=== PATIENT | female | born 1955 | race Caucasian/White ===

== ENCOUNTER 2017-04-09 17:52 | Emergency (ER) | payer BC ==
[2017-04-09 18:01] VITALS: BP 161/105
[2017-04-09] MEDS ORDERED: predniSONE 20 MG Tab PO ONE (18:33)
[2017-04-09] MEDS ORDERED: Albuterol 0.083% 2.5 MG/3 ML Neb Soln NEB ONE ×2 (18:33→20:09)
[2017-04-09] MEDS ORDERED: Levalbuterol HCl 1.25 MG/0.5 ML Neb NEB ONE (18:34)
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
[2017-04-09] MEDS ORDERED: Azithromycin 250 MG Tab PO ONE (19:44)
[2017-04-09] MEDS ORDERED: Azithromycin 250 MG Tab PO SCH (19:45)
[2017-04-09] MEDS ORDERED: Azithromycin 250 MG Tab ONE (19:53)
[2017-04-09] MEDS ORDERED: guaiFENesin 600 MG Tab.ER PO ONE (20:09)
[2017-04-09] MEDS ORDERED: Albuterol/Ipratropium 3.0-0.5 MG/3 ML Neb Soln NEB ONE (20:33)
[2017-04-09] MEDS ORDERED: Albuterol 6.7 GM Inhaler INH ONE ×2 (20:33→21:13)
[2017-04-09] MEDS ORDERED: Sodium Chloride 0.9% 10 ML Syringe FLUSH PRN (20:34)
[2017-04-09] MEDS ORDERED: Magnesium Sulfate/Water 2 GM in Premix Bag 1 BAG IV ONE (20:34)
[2017-04-10] MEDS ORDERED: Azithromycin 250 MG Tab PO ONE (19:34)
--- NOTE | 2017-04-12 10:04 | CR ---
Chest: Two views of the chest were obtained. Comparison: No prior study. Thick density is seen within the right lung base. This is noted on the PA view and not identified with certainty on the lateral view. This could represent an area of scarring, atelectasis as well as small area of pneumonia. Perihilar markings are also increased most likely representing bronchitis. Heart does not appear enlarged. Upper mediastinum is normal. Lungs are hyperinflated which is compatible with emphysematous change. Degenerative spurring is identified throughout the thoracic spine. Impression: 1. Increased perihilar markings which most likely represent bronchitis. 2. Thick density within the right lung base with differential as described above. 3. Emphysematous changes and other incidental findings. Diagnostic code #3
== END 2017-04-09 21:35 | disposition home or self-care (01) ==
LOC: JD.ED 17:52
DX: J18.9 Pneumonia, unspecified organism (principal); J45.909 Unspecified asthma, uncomplicated; F17.210 Nicotine dependence, cigarettes, uncomplicated; Z79.899 Other long term (current) drug therapy
CPT/HCPCS: 71020; 94640; 96365; 99285; A9270; J7050; 99284; J3475

== ENCOUNTER 2017-12-10 00:22 | Emergency (ER) | payer BC ==
[2017-12-10] MEDS ORDERED: methylPREDNISolone Sodium Succinate 125 MG/2 ML SDV IVPUSH ONE (00:24)
[2017-12-10] MEDS ORDERED: Albuterol/Ipratropium 3.0-0.5 MG/3 ML Neb Soln NEB ONE ×2 (00:24→05:54)
[2017-12-10] MEDS ORDERED: Albuterol 0.083% 2.5 MG/3 ML Neb Soln NEB ONE (00:25)
[2017-12-10] MEDS ORDERED: Magnesium Sulfate/Water 2 GM in Premix Bag 1 BAG IV ONE (00:26)
[2017-12-10] MEDS ORDERED: Sodium Chloride 0.9% 1,000 ML IV SCH (00:30)
--- NOTE | 2017-12-10 00:30 | EDM.PDOC ---
ED HPI GENERAL MEDICAL PROBLEM - General Chief Complaint: Respiratory Problem Stated Complaint: [facility] Time Seen by Provider: 12/10/17 00:24 Source of Information: Reports: Patient, EMS Notes Reviewed History Limitations: Reports: No Limitations - History of Present Illness INITIAL COMMENTS - FREE TEXT/NARRATIVE: 62-year-old female presents to the ED with severe asthma attack. She has underlying COPD with a reversible component. She states she has a nebulizer machine at home but rarely needs unless she gets sick with an upper respiratory tract infection. She believes that the carranza given to her for Mother's Day are the cause of her acute asthma attack. These are lilies which she is known to be allergic to. Apparently they blossomed opened up quite a bit today and therefore dispersed pollen in her living quarters. About 9:30 she started to develop increased dyspnea and became severely short of breath by midnight. When paramedics arrived her O2 sats were 82% on room air. She was bey in color. She was in severe respiratory distress. She had used her nebulizer machine with albuterol neb treatments 3 with little improvement. She also used her Advair discus inhaler with no improvement. Medics simply placed her on oxygen at 12 L/ m by nonrebreather mask and brought her to the ED. They did not attempt an IV stick. She did vomit en route to the hospital bilious material and parts of her spaghetti supper. She no longer feels nauseated. Blood pressure when the paramedics picked her up was 202/128 indicating severe distress. Blood pressure here is 159/107. Sats are 95% on 2 L/m by nasal cannula. He should states she still smokes about 10 cigarettes per day. Chronic smoker's cough usually brownish phlegm. No recent upper respiratory tract infections. No fever or chills. Onset: Sudden Onset Date: 12/09/17 Onset Time: 21:00 Duration: Hour(s): (Started to note increased trouble breathing about 9:00 last evening and it progressively worsened over the next 2-3 hours.) Location: Reports: Chest (Difficulty breathing.) Quality: Reports: Other (Severe dyspnea with wheeze.) Severity: Severe Improves with: Reports: None Worsens with: Reports: None Context: Reports: Other (Exposure to flower pollen. Apparently flower's that were given to her for Mother's Day have blossomed and released pollen into the home. She no she's allergic to certain types of lilies apparently which are present inthis boquet. ). Denies: Activity, Exercise, Lifting, Sick Contact, Trauma Associated Symptoms: Reports: Chest Pain, Cough (Central chest pain), cough w sputum, Nausea/Vomiting, Shortness of Breath, Weakness (Vomited once bilious material and her supper.). 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 paramedics did not administer any medication as the patient already used albuterol nebulizer treatment at home 3 and her Advair Diskus inhaler. 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 Denies: Fever, Chills HEENT: Reports: Glasses Respiratory: Reports: Shortness of Breath, Wheezing, Cough, Sputum. Denies: Pleuritic Chest Pain, Hemoptysis (White sputum) Cardiovascular: Reports: Chest Pain, Blood Pressure Problem (Central chest pain is easing up now.), Dyspnea on Exertion (Chronically). Denies: Claudication, Edema, Lightheadedness, Orthopnea Endocrine: Reports: Fatigue GI/Abdominal: Reports: No Symptoms : Reports: No Symptoms Musculoskeletal: Reports: Joint Pain Skin: Reports: No Symptoms (Osteoarthritic changes knees hips low back at times. ) Neurological: Reports: No Symptoms Psychiatric: Reports: No Symptoms Hematologic/Lymphatic: Reports: No Symptoms Immunologic: Reports: No Symptoms ED EXAM, GENERAL - Physical Exam Exam: See Below Exam Limited By: Respiratory Distress (Centered in severe respiratory distress able to speak in one or 2 word sentences only. Currently wearing a nonrebreather mask at 12 L/m to achieve sats of 97%.) General Appearance: Alert, Severe Distress (Severe respiratory distress as mentioned above.) Eye Exam: Bilateral Eye: Normal Inspection, PERRL Throat/Mouth: Normal Lips, Other Head: Atraumatic, Normocephalic Neck: Normal Inspection, Supple, Non-Tender, Full Range of Motion. No: Carotid Bruit, Lymphadenopathy (L), Lymphadenopathy (R) Respiratory/Chest: Respiratory Distress, Decreased Breath Sounds (Wheezing throughout all lung sims. These breath sounds the lower 40% of lung sims posteriorly.), Wheezing, Other (Marked respiratory distress with tracheal tug. Respiratory rate 36/m.) Cardiovascular: Normal Peripheral Pulses, No Edema, No Gallop, No Murmur, No Rub , Tachycardia (Resting tachycardia 1 48/m) Peripheral Pulses: 2+: Posterior Tibial (L), Posterior Tibial (R), Dorsalis Pedis (L), Dorsalis Pedis (R) GI/Abdominal: Soft (Mildly hyperactive bowel sounds.), Non-Tender, Abnormal Bowel Sounds, Other (Well-healed midline scar.) Back Exam: Normal Inspection, Full Range of Motion. No: CVA Tenderness (L) Extremities: Normal Inspection, Normal Range of Motion, Non-Tender, No Pedal Edema Neurological: Alert, Oriented, CN II-XII Intact, Normal Cognition Psychiatric: Anxious Skin Exam: Warm, Dry, Intact, Other (Slightly grayish in color.) EKG INTERPRETATION EKG Date: 12/10/17 Time: 00:40 Rhythm: NSR Rate (Beats/Min): 84 [place]: Normal P-Wave: Enlarged (Consider left atrial enlargement.) QRS: Normal ST-T: Other (Diffuse early repolarization pattern.) QT: Normal EKG Interpretation Comments: Borderline ECG. Course - Vital Signs Last Recorded V/S: Last Vital Signs Temp 35.7 C 12/10/17 00:25 Pulse 83 12/10/17 05:26 Resp 16 12/10/17 05:26 BP 141/73 H 12/10/17 05:26 Pulse Ox 96 12/10/17 06:01 - Orders/Labs/Meds Orders: Active Orders 24 hr Category Date Time Status EKG Documentation Completion [RC] STAT Care 12/10/17 00:29 Active Oxygen Therapy [RC] ASDIRECTED Care 12/10/17 00:33 Active RT Aerosol Therapy [RC] ASDIRECTED Care 12/10/17 00:24 Active RT Aerosol Therapy [RC] ASDIRECTED Care 12/10/17 05:54 Active Chest 1V Frontal [CR] Stat Exams 12/10/17 00:26 Taken Sodium Chloride 0.9% [Normal Saline] 1,000 ml Med 12/10/17 00:30 Active IV ASDIRECTED Medication Orders Sodium Chloride (Normal Saline) 1,000 mls @ 150 mls/hr IV ASDIRECTED LUIS Last Admin: 12/10/17 00:37 Dose: 150 mls/hr Labs: Laboratory Tests 12/10/17 12/10/17 12/10/17 Range/Units 00:29 00:31 00:31 WBC 11.91 H (3.98-10.04) K/mm3 RBC 5.22 (3.98-5.22) M/mm3 Hgb 15.1 (11.2-15.7) gm/L Hct 43.7 (34.1-44.9) % MCV 83.7 (79.4-94.8) fl MCH 28.9 (25.6-32.2) pg MCHC 34.6 (32.2-35.5) g/dl RDW Std Deviation 38.5 (36.4-46.3) fL Plt Count 329 (182-369) K/mm3 MPV 9.6 (9.4-12.3) fl Neutrophils % (Manual) 64 H (40-60) % Band Neutrophils % 0 (0-10) % Lymphocytes % (Manual) 19 L (20-40) % Atypical Lymphs % 0 % Monocytes % (Manual) 7 (2-10) % Eosinophils % (Manual) 10 H (0.7-5.8) % Basophils % (Manual) 0 L (0.1-1.2) Platelet Estimate Adequate RBC Morph Comment Normal Puncture Site Rt radial ABG pH 7.32 L (7.35-7.45) ABG pCO2 48.1 H (35.0-45.0) mmHg ABG pO2 72.0 L (80.0-100.0) mmHg ABG HCO3 23.9 (22.0-26.0) meq/L ABG O2 Saturation 93.9 L (96.0-97.0) % ABG Base Excess -2.2 L (-2-2.0) A-a Gradient 2 mmHg FiO2 21.00 (21.00-100.00) % Sodium 142 (136-145) mEq/L Potassium 3.5 (3.5-5.1) mEq/L Chloride 104 (98-107) mEq/L Carbon Dioxide 26 (21-32) mEq/L Anion Gap 15.5 H (5-15) BUN 18 (7-18) mg/dL Creatinine 1.1 H (0.55-1.02) mg/dL Est Cr Clr Drug Dosing 50.28 mL/min Estimated GFR (MDRD) 50 (>60) mL/min BUN/Creatinine Ratio 16.4 (14-18) Glucose 149 H (80-115) mg/dL Calcium 9.3 (8.5-10.1) mg/dL Magnesium 2.0 (1.8-2.4) mg/dl Total Bilirubin 0.3 (0.2-1.0) mg/dL AST 18 (15-37) U/L ALT 37 (14-59) U/L Alkaline Phosphatase 107 (46-116) U/L CK-MB (CK-2) 2.6 (0-3.6) ng/ml Troponin I < 0.017 (0.00-0.056) ng/mL C-Reactive Protein < 0.2 (<1.0) mg/dL NT-Pro-B Natriuret Pep (0-125) pg/mL Total Protein 7.8 (6.4-8.2) g/dl Albumin 4.4 (3.4-5.0) g/dl Globulin 3.4 gm/dL Albumin/Globulin Ratio 1.3 (1-2) /18/18 Range/Units 00:31 WBC (3.98-10.04) K/mm3 RBC (3.98-5.22) M/mm3 Hgb (11.2-15.7) gm/L Hct (34.1-44.9) % MCV (79.4-94.8) fl MCH (25.6-32.2) pg MCHC (32.2-35.5) g/dl RDW Std Deviation (36.4-46.3) fL Plt Count (182-369) K/mm3 MPV (9.4-12.3) fl Neutrophils % (Manual) (40-60) % Band Neutrophils % (0-10) % Lymphocytes % (Manual) (20-40) % Atypical Lymphs % % Monocytes % (Manual) (2-10) % Eosinophils % (Manual) (0.7-5.8) % Basophils % (Manual) (0.1-1.2) Platelet Estimate RBC Morph Comment Puncture Site ABG pH (7.35-7.45) ABG pCO2 (35.0-45.0) mmHg ABG pO2 (80.0-100.0) mmHg ABG HCO3 (22.0-26.0) meq/L ABG O2 Saturation (96.0-97.0) % ABG Base Excess (-2-2.0) A-a Gradient mmHg FiO2 (21.00-100.00) % Sodium (136-145) mEq/L Potassium (3.5-5.1) mEq/L Chloride (98-107) mEq/L Carbon Dioxide (21-32) mEq/L Anion Gap (5-15) BUN (7-18) mg/dL Creatinine (0.55-1.02) mg/dL Est Cr Clr Drug Dosing mL/min Estimated GFR (MDRD) (>60) mL/min BUN/Creatinine Ratio (14-18) Glucose (80-115) mg/dL Calcium (8.5-10.1) mg/dL Magnesium (1.8-2.4) mg/dl Total Bilirubin (0.2-1.0) mg/dL AST (15-37) U/L ALT (14-59) U/L Alkaline Phosphatase (46-116) U/L CK-MB (CK-2) (0-3.6) ng/ml Troponin I (0.00-0.056) ng/mL C-Reactive Protein (<1.0) mg/dL NT-Pro-B Natriuret Pep 48 (0-125) pg/mL Total Protein (6.4-8.2) g/dl Albumin (3.4-5.0) g/dl Globulin gm/dL Albumin/Globulin Ratio (1-2) Meds: Medications Generic Name Dose Route Start Last Admin Trade Name Freq PRN Reason Stop Dose Admin Sodium Chloride 1,000 mls @ 150 mls/hr 12/10/17 00:30 12/10/17 00:37 Normal Saline IV 150 mls/hr ASDIRECTED LUIS Administration Discontinued Medications Generic Name Dose Route Start Last Admin Trade Name Freq PRN Reason Stop Dose Admin Albuterol 7.5 mg 12/10/17 00:25 12/10/17 00:36 Proventil Neb Soln NEB 12/10/17 00:26 7.5 mg ONETIME ONE Administration Albuterol/Ipratropium 3 ml 12/10/17 00:24 12/10/17 00:36 Duoneb 3.0-0.5 Mg/3 Ml NEB 12/10/17 00:25 3 ml ONETIME ONE Administration Albuterol/Ipratropium 3 ml 12/10/17 05:54 12/10/17 06:01 Duoneb 3.0-0.5 Mg/3 Ml [facility] 12/10/17 05:55 3 ml ONETIME ONE Administration Magnesium Sulfate 2 gm/ Premix 50 mls @ 25 mls/hr 12/10/17 00:26 12/10/17 00: 38 IV 12/10/17 02:25 25 mls/hr ONETIME ONE Administration Methylprednisolone Sodium Succinate 125 mg 12/10/17 00:24 12/10/17 00:37 Solu-Medrol IVPUSH 12/10/17 00:25 125 mg ONETIME ONE Administration Ondansetron HCl 4 mg 12/10/17 00:33 12/10/17 00:40 Zofran IVPUSH 12/10/17 00:34 4 mg ONETIME ONE Administration Prednisone 20 mg 12/10/17 06:25 Prednisone PO 12/10/17 06:26 ONETIME ONE - Radiology Interpretation Free Text/Narrative:: 62-year-old female presents to the ED per ambulance with an acute exacerbation of her asthma. Patient has known COPD and still smokes 10 cigarettes per day. She needs nebulizer treatment on a when necessary basis usually only when she gets upper respiratory tract infection. She appreciated that she got carranza for Mother's Day and these contain lilies. She believes they opened up today and released pollen into the home. She is known to be very allergic to lilies. Started to develop severe dyspnea and wheezing about 2100 hrs. which progressed over the next 3 hours. She has used her home nebulizer treatment with albuterol 3 with minimal improvement also used Advair discus with minimal improvement. Paramedics were summoned. O2 sats initially were 82% and she was bey in color. She was given oxygen at 12 L/m by nonrebreather mask which achieved O2 sats 97% . Patient did have emesis en route to the hospital of bile and her supper. She does not feel nauseated at this time. Initial BP was 202/146. Patient presented only able to speak in one or 2 word sentences. Patient will be given DuoNeb treatment immediately and then albuterol continuous neb treatment 7.5 mg over the next 45 minutes to an hour. ABGs ECG chest x-ray and routine labs to be done. She will also be given magnesium 2 g IV. She will also be given Solu- Medrol 125 mg IV. - Re-Assessments/Exams Free Text/Narrative Re-Assessment/Exam: 12/10/17 00:56 ECG shows sinus rhythm at 84/m now. There is a diffuse early repolarization pattern intermittent leads make it look like she has ST segment depression but this is due to wandering baseline. Consider left atrial hypertrophy pattern. ABGs reveal a pH of 7.32. PCO2 is 48.1. PO2 was 7202 saturations are 94% this is done on 2 L/m nasal cannula. Monitor reveals sats continued to improve her now 96%. She is just starting her continuous albuterol neb treatment now. 12/10/17 00:59 One view chest x-ray reveals hyperinflated lung sims. Thorax present. There is a thickened density in the right lower lobe of the lung which appears to be scar tissue. It was present on last chest x-ray done in March 2017. No acute infective process is evident. Cardiac silhouette is upper limits of normal by portable technique. 12/10/17 01:14 able to talk in full sentences now. O2 sats are 97-100% on continuous albuterol neb treatment. 12/10/17 01:41 Labs reveal a mildly elevated white count at 11.91 with 64% neutrophils and no bands. Hemoglobin is 15.1 with hematocrit of 43.7. Platelet count is normal at 329,000. ABGs revealed pH of 7.32 with PCO2 of 48.1 and a PaO2 of 72 with O2 sats of 94% this was done off of oxygen. Sodium was 142 with potassium of 3.5. Chloride 104 bicarbonate 26. And a gap is 15.5. BUNs 18. Creatinine is 1.1. Glucose is 149 with a calcium of 9.3. Magnesium was 2.0. Bilirubin 0.3. Liver function normal .CK-MB fraction 2.6 . Troponin I is less than 0.017. BNP was 48. 12/10/17 02:03 Vital signs remained stable. O2 sats are 92-93%. BP is down to 150/75 heart rates 86. Spiked rate is now 19/m. On auscultation she remains diffusely wheezy in all lung sims. Plan will be to keep her in the ED to see if we can break the acute asthma cycle since the precipitant appears to be flower pollen. Also there is only one nurse working in the intensive care unit tonight and to patient's already in the unit. 12/10/17 02:40 vital signs remained stable. BP is 151/82. Heart rate is 83 and sinus. O2 sats are 94% on 2 L. Respiratory rate is 18/m. Patient has managed to fall asleep. 12/10/17 03:51 blood pressure is now 138/73. O2 sats are 95% on 2 L respiratory distended 17/m heart rate is 79 and sinus. Patient has been able to sleep 12/10/17 05:23 blood pressure is currently 141/73. Heart rate is 82 and sinus. Respiratory rate is now down to 16/m pulse ox 96% on 2 L. Will consider starting to wean her from oxygen. 12/10/17 05:55 patient desaturated down to 89% off of oxygen while asleep. He remained between 89 and 90% on room air and after 10 minutes was increased back to 2 L/m. She will have repeat DuoNeb at 0600 hrs. 12/10/17 06:26 patient was reexamined and she has no wheezing at all. She feels good in terms of able to take a full deep breath without any restrictions. She does report that she was outside planting carranza all day yesterday. The fact that she responded so aggressively to pollen exposure suggest that there is chronic underlying inflammation of her bronchial tubes. I'm going to place her in a short course of prednisone 20 mg twice a day for the next 4 days. First I will be provided in the ED now next toe would be due its suppertime tonight. I told will wean her off her oxygen. When she takes a few deep breaths she pops up to 97--98%. Tentatively she'll be discharged to home I believe her will be coming back to check on her at 0700 hrs. Departure - Departure Time of Disposition: 07:00 Disposition: Home, Self-Care 01 Condition: Fair Clinical Impression: Exacerbation of asthma Qualifiers: Asthma severity: severe Asthma persistence: unspecified Qualified Code(s): J45.901 - Unspecified asthma with (acute) exacerbation - Discharge Information Prescriptions: predniSONE [Deltasone] 20 mg PO BID #7 tablet Referrals: PCP,None [Primary Care Provider] - Forms: ED Department Discharge Additional Instructions: Evaluation in the emergency room today in regards to acute exacerbation of asthma felt to be precipitated by exposure to pollen from lilies given to you on Mother's Day. By history it appears that the lilies opened up and released great detail pollen into her home tonight which precipitated a severe asthma attack. You're treated aggressively in the emergency department with initial DuoNeb treatment and then continuous albuterol for 45 minutes which improved her breathing dramatically. You're also given steroid Solu-Medrol 125 mg IV and magnesium 2gms over 2 hours intravenously. He remained on oxygen until about 0615 hrs. this morning when it was determined that your lungs sounds were markedly improved with no further wheezing evident. Oxygen saturations remained around mid 94 to 95 percent off over the oxygen while you are awake. Therefore continue your usual asthma treatment with the addition of prednisone 20 mg twice daily for the next 4 days ideally with breakfast and supper to make sure you don't get a recurrence of severe asthma attack. First tablet of prednisone was given in the emergency department this morning next tablet would be due at suppertime tonight. Of course continue to use her albuterol nebulizations as needed as often as every 3-4 hours if you develop shortness of breath and or wheezing over the next few days. If condition worsens in is not improving with treatment at home of course return to the ED. - My Orders Last 24 Hours: My Active Orders 12/10/17 00:24 RT Aerosol Therapy [RC] ASDIRECTED 12/10/17 00:26 Chest 1V Frontal [CR] Stat 12/10/17 00:29 EKG Documentation Completion [RC] STAT 12/10/17 00:30 Sodium Chloride 0.9% [Normal Saline] 1,000 ml IV ASDIRECTED 12/10/17 00:33 Oxygen Therapy [RC] ASDIRECTED 12/10/17 05:54 RT Aerosol Therapy [RC] ASDIRECTED - Assessment/Plan Last 24 Hours: My Active Orders 12/10/17 00:24 RT Aerosol Therapy [RC] ASDIRECTED 12/10/17 00:26 Chest 1V Frontal [CR] Stat 12/10/17 00:29 EKG Documentation Completion [RC] STAT 12/10/17 00:30 Sodium Chloride 0.9% [Normal Saline] 1,000 ml IV ASDIRECTED 12/10/17 00:33 Oxygen Therapy [RC] ASDIRECTED 12/10/17 05:54 RT Aerosol Therapy [RC] ASDIRECTED
[2017-12-10] MEDS ORDERED: Ondansetron 4 MG/2 ML SDV IVPUSH ONE (00:33)
[2017-12-10 05:27] VITALS: BP 141/73
[2017-12-10] MEDS ORDERED: predniSONE 20 MG Tab PO ONE (06:25)
--- NOTE | 2017-12-10 08:00 | CR ---
Chest: Portable view of the chest is obtained. Comparison: Prior chest x-ray of 04/09's of 17. Parenchymal density is noted within the right lung base. This appears similar to prior study having a thick curvilinear appearance. Since this appears persistent recommend a noncontrast chest CT to make sure this does not appear to be masslike. Lungs otherwise are clear but hyperinflated (consistent with emphysematous change). Heart size is normal. Scoliosis and degenerative change is noted within the spine. Impression: 1. Parenchymal density within the right base. Noncontrast chest CT recommended to further evaluate. 2. Other incidental findings. Nothing acute is otherwise seen. Diagnostic code #9
== END 2017-12-10 06:55 | disposition home or self-care (01) ==
LOC: JD.ED 00:22
DX: J45.901 Unspecified asthma with (acute) exacerbation (principal); F17.210 Nicotine dependence, cigarettes, uncomplicated
CPT/HCPCS: 36415; 36600; 71045; 80053; 82553; 82803; 83735; 83880; 84484; 85007; 85027; 86140; 93005; 94640; 96361; 96365; 96366; 96375; 99285; A9270; J2405; J2930; J7040; J3475

== ENCOUNTER 2019-06-04 15:13 | Emergency (ER) | payer BC ==
[2019-06-04 15:26] VITALS: BP 161/99; PULSE 92
--- NOTE | 2019-06-04 15:30 | EDM.PDOC ---
ED HPI GENERAL MEDICAL PROBLEM - General Chief Complaint: Upper Extremity Injury/Pain Stated Complaint: SLIPPED ON ICE,RIGHT ARM PAIN Time Seen by Provider: 06/04/19 15:22 Source of Information: Reports: Patient History Limitations: Reports: No Limitations - History of Present Illness INITIAL COMMENTS - FREE TEXT/NARRATIVE: Patient accidentally slipped on the ice landing on her right shoulder. Since that is been able to move her arm however has limited range of motion especially in abduction at the shoulder. Tenderness is noted to the proximal humerus, no elbow pain or wrist pain. Denies any head injury and neck injury, slipped and fell backwards on her shoulder, starting to get some tightness in her low back muscles. No loss of bowel or bladder control. No hip pain or lower extremity injury. Patient is right-handed. No numbness or tingling to the shoulder blade or shoulder/deltoid region Onset: Today, Sudden Onset Date: 06/04/19 Duration: Hour(s):, Constant Location: Reports: Upper Extremity, Right Quality: Reports: Ache, Dull Severity: Moderate Improves with: Reports: None Worsens with: Reports: Movement Context: Reports: Activity Associated Symptoms: Denies: Chest Pain, Cough, Fever/Chills, Headaches, Nausea/ Vomiting Right Shoulder Pain Score (Numeric/FACES): 5 - Related Data Allergies Allergy/AdvReac Type Severity Reaction Status Date / Time No Known Allergies Allergy Verified 06/04/19 15:26 Home Meds: Home Meds Albuterol Sulfate [Albuterol Sulfate HFA] 2 inh INH ASDIRECTED PRN 04/07/14 [ History] Fluticasone/Salmeterol [Advair 250-50] 1 puff PO BID 08/25/15 [History] Famotidine [Pepcid AC] 20 mg PO BID PRN #30 tablet 03/02/18 [Rx] Naproxen Sodium [Aleve] 220 mg PO ASDIRECTED #30 capsule 03/02/18 [Rx] Cyclobenzaprine [Flexeril] 10 mg PO BEDTIME #12 tab 06/04/19 [Rx] Past Medical History - Past Health History Medical/Surgical History: Denies Medical/Surgical History HEENT History: Reports: Impaired Vision Other HEENT History: wears corrective lenses Respiratory History: Reports: Asthma, COPD 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: Reports: 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 Denies: Bruising Neurological: Reports: No Symptoms. Denies: Dizziness, Headache, Numbness, Paresthesia, Tingling Psychiatric: Reports: No Symptoms ED EXAM, GENERAL - Physical Exam Exam: See Below Exam Limited By: No Limitations General Appearance: Alert, WD/WN, No Apparent Distress Neck: Normal Inspection, Supple, Non-Tender, Full Range of Motion Respiratory/Chest: Chest Non-Tender Peripheral Pulses: 2+: Radial (R) Back Exam: Normal Inspection. No: CVA Tenderness (L), Vertebral Tenderness Extremities: Normal Capillary Refill, Arm Pain, Limited Range of Motion, Other ( Tenderness in the right shoulder, proximal humerus area. No gross deformity or step-off, sensation is normal, distal pulses are normal. No clavicular tenderness no before meals joint tenderness no scapular pain. Elbow has good range of motion both supination and pronation flexion and extension wrist exam and without injury or pain. Distal sensation and motor strength normal.) Neurological: Alert, Oriented Psychiatric: Normal Affect Skin Exam: Warm, Dry. No: Ecchymosis Course - Vital Signs Text/Narrative:: Examination, x-rays, rule out fracture dislocation suspect may be a rotator cuff injury Last Recorded V/S: Last Vital Signs Temp 98.5 F 06/04/19 15:21 Pulse 92 06/04/19 15:21 Resp 18 06/04/19 15:21 BP 161/99 H 06/04/19 15:21 Pulse Ox 95 06/04/19 15:21 - Orders/Labs/Meds Orders: Active Orders 24 hr Category Date Time Status Shoulder Comp Rt [CR] Stat Exams 06/04/19 15:30 Taken - Radiology Interpretation Free Text/Narrative:: 3 views of the right shoulder revealed a lot of degenerative changes. There is no obvious fracture dislocation however noted. Upper ribs and upper chest is unremarkable. - Re-Assessments/Exams Free Text/Narrative Re-Assessment/Exam: 06/04/19 16:35 This musculoskeletal strain/rule out rotator cuff injury. Will treat patient with Naprosyn, muscle relaxant, follow-up with primary care and/or orthopedic Return if any increasing pain, numbness or tingling. Departure - Departure Time of Disposition: 16:36 Disposition: Home, Self-Care 01 Clinical Impression: Contusion of shoulder, Fall due to ice or snow - Discharge Information *PRESCRIPTION DRUG MONITORING PROGRAM REVIEWED*: Not Applicable *COPY OF PRESCRIPTION DRUG MONITORING REPORT IN PATIENT SANDRA: Not Applicable Prescriptions: Cyclobenzaprine [Flexeril] 10 mg PO BEDTIME #12 tab Instructions: Cryotherapy, [id number], Contusion, [id number] Referrals: PCP,None [Primary Care Provider] - Forms: ED Department Discharge Additional Instructions: Rest, ice, ibuprofen for pain, Flexeril for muscle relaxant, follow-up with your primary care provider. Return sooner if increasing pain, numbness, tingling, worsening - My Orders Last 24 Hours: My Active Orders 06/04/19 15:30 Shoulder Comp Rt [CR] Stat - Assessment/Plan Last 24 Hours: My Active Orders 06/04/19 15:30 Shoulder Comp Rt [CR] Stat
[2019-06-04] MEDS ORDERED: Cyclobenzaprine 10 MG Tab PO ONE (16:58)
[2019-06-04] MEDS ORDERED: Cyclobenzaprine 10 MG Tab ONE (16:58)
[2019-06-04] MEDS ORDERED: Cyclobenzaprine 10 MG Tab PO SCH (21:00)
--- NOTE | 2019-06-05 07:13 | CR ---
Right shoulder: Three views of the right shoulder obtained. Comparison: No previous right shoulder exam. Inferior spurring is noted within the glenohumeral joint as well as fairly prominence inferior spurring being seen within the acromioclavicular joint. Acromioclavicular spurring is large enough to cause impingement. No acute fracture or dislocation is seen. Slight cystic change is noted within the greater tuberosity which is felt to be incidental. Impression: 1. Degenerative change as noted above. Diagnostic code #2
== END 2019-06-04 17:05 | disposition home or self-care (01) ==
LOC: JD.ED 15:13
DX: S40.011A Contusion of right shoulder, initial encounter (principal); J44.9 Chronic obstructive pulmonary disease, unspecified; Z79.899 Other long term (current) drug therapy; W00.0XXA Fall on same level due to ice and snow, initial encounter
CPT/HCPCS: 73030; 99283; A9270

== ENCOUNTER 2020-02-23 05:39 | Emergency (ER) | payer BC, OTHER ==
[2020-02-23] MEDS ORDERED: Ondansetron 4 MG/2 ML SDV IVPUSH ONE (05:50)
[2020-02-23] MEDS ORDERED: HYDROmorphone 1 MG/ML Syringe IVPUSH ONE (05:50)
--- NOTE | 2020-02-23 05:55 | EDM.PDOC ---
ED HPI GENERAL MEDICAL PROBLEM - General Chief Complaint: Back Pain or Injury Stated Complaint: [facility] Time Seen by Provider: 02/23/20 05:49 Source of Information: Reports: Patient, EMS History Limitations: Reports: No Limitations - History of Present Illness INITIAL COMMENTS - FREE TEXT/NARRATIVE: 64-year-old female presents to the ED with bilateral severe low back pain. Patient has been dealing with chronic low back pain issues. 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 She reports she has been going to physiotherapy 2-3 times weekly and has responded well to treatment. Yesterday she lifted some heavy plant pots containing soil and did feel her low back hurting last night. She also was staining the deck with repetitive twisting movements in the last few days. She took Motrin 600 mg by mouth about 2200 hrs. before going to bed. She states it may have helped for couple of hours but since that time she is been awake. Any movement causes severe spasm, particularly in her right lower back. At present she has pain radiating down her left anterior lateral thigh to her ankle. She states this has happened in the past but was under good control until last evening. She has had no previous lumbar spine surgery. She denies any dysuria urgency or frequency. No fever or chills. Reports that she still passing flatus per rectum. Does not feel distended in the abdomen. Pain is constant and worsened by any movement. Paramedics brought her to the hospital per [facility]. She has received no medications from them. Onset: Gradual Onset Date: 02/22/20 Onset Time: 18:00 Duration: Hour(s):, Getting Worse Location: Reports: Back (His low back pain with radiculopathy left lower extremity down to her ankle. Right low back pain with spastic component if she moves at all.) Quality: Reports: Ache, Stabbing (Spasms lower back worse on the right compared to the left.), Throbbing Severity: Severe (9 out of 10.) Improves with: Reports: Rest Worsens with: Reports: Movement (Or attempt to set up causes exacerbation of the pain.) Context: Reports: Lifting (Is lifting heavy plant pots yesterday.). Denies: Activity, Exercise Associated Symptoms: Reports: Cough, Loss of Appetite. 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 last night.) Lower Back Pain Score (Numeric/FACES): 10 - Related Data Allergies Allergy/AdvReac Type Severity Reaction Status Date / Time No Known Allergies Allergy Verified 02/23/20 05:40 Home Meds: Home Meds Albuterol Sulfate [Albuterol Sulfate HFA] 2 inh INH ASDIRECTED PRN 04/07/14 [History] Cyclobenzaprine [Flexeril] 10 mg PO Q12H PRN #10 tablet 02/23/20 [Rx] Mometasone/Formoterol [Dulera 200 Mcg-5 Mcg Inhaler] 02/23/20 [History] oxyCODONE HCl/Acetaminophen [Percocet 5-325 mg Tablet] 1 - 2 each PO Q4H PRN #24 tablet 02/23/20 [Rx] predniSONE [Prednisone] 20 mg PO BID #12 tablet 02/23/20 [Rx] Past Medical History - Past Health History Medical/Surgical History: Denies Medical/Surgical History HEENT History: Reports: Impaired Vision Other HEENT History: wears corrective lenses Respiratory History: Reports: Asthma, COPD (Chronic cigarette smoker.) Gastrointestinal History: Reports: GERD 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: Reports: 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, 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: - Past Surgical History GI Surgical History: Reports: Appendectomy (Laparoscopic appendectomy about 3 years ago.) Female Surgical History: Reports: Section (x --1990.) Social & Family History - Family History Family Medical History: Noncontributory - Tobacco Use Smoking Status *Q: Current Every Day Smoker Tobacco Use Within Last Twelve Months: Cigarettes (Usually about 12 to 15 cigarettes/day.) - Caffeine Use Caffeine Use: Reports: Coffee, Tea - Living Situation & Occupation Living situation: Reports: Occupation: Employed ED ROS GENERAL - Review of Systems Review Of Systems: See Below Constitutional: Reports: Fatigue, Decreased Appetite (Sleeping most of the night.). Denies: Fever, Chills, Malaise, Weakness HEENT: Reports: Glasses Respiratory: Reports: Shortness of Breath (Is urgent at times. History of asthma for which she takes albuterol inhaler. She also has a home nebulizer machine.), Wheezing, Cough. Denies: Pleuritic Chest Pain (On occasion.), Sputum (Nonproductive.) Cardiovascular: Reports: Dyspnea on Exertion (On occasion.). Denies: Chest Pain, Blood Pressure Problem, Claudication, Edema, Lightheadedness, Orthopnea Endocrine: Reports: No Symptoms GI/Abdominal: Denies: Abdominal Pain, Diarrhea : Reports: No Symptoms Musculoskeletal: Reports: Back Pain (Chronic low back pain with acute exacerbation after doing some heavy lifting yesterday.) Skin: Reports: No Symptoms Neurological: Reports: Paresthesia (To colopathy left lower extremity to the ankle and the L5 nerve root distribution.) Psychiatric: Reports: No Symptoms Hematologic/Lymphatic: Reports: No Symptoms Immunologic: Reports: No Symptoms ED EXAM,LOWER BACK PAIN/INJURY - Physical Exam Exam: See Below Exam Limited By: No Limitations General Appearance: Alert, WD/WN, Moderate Distress, Other (Patient is in quite bad pain. Prefers to lie very still. Temperature is 37.0 heart rate 76 respiratory 16 BP 124/68. O2 sats 100% on room air.) Eye Exam: Bilateral Eye: Normal Inspection, PERRL Respiratory/Chest: No Respiratory Distress, Lungs Clear, Normal Breath Sounds, No Accessory Muscle Use Cardiovascular: Normal Peripheral Pulses, Regular Rate, Rhythm, No Edema, No Gallop, No Murmur, No Rub GI/Abdominal: Normal Bowel Sounds, Soft, Non-Tender, No Organomegaly, No Abnormal Bruit, No Mass, Pelvis Stable Back Exam: Decreased Range of Motion, Muscle Spasm, Paraspinal Tenderness (From thoracic 10 to lumbar 5 bilaterally.). No: Vertebral Tenderness (Her lower back from thoracic 10 to lumbar 5. Worse on the right side as compared to the left) Extremities: Normal Inspection, Normal Range of Motion, Non-Tender, No Pedal Edema Neurological: Alert, Normal Mood/Affect, CN II-XII Intact, Oriented x 3, Straight Leg Raise (L), Difficulty Walking, Other. No: Normal Gait, Saddle Anesthesia DTR - Lower Extremities: 0: Knee (L), Ankle (R), Ankle (L), 1+: Knee (R) Psychiatric: Normal Affect (Good deal of pain at present.), Normal Mood, Other Skin Exam: Warm, Dry, Intact, Normal Color, No Rash Course - Vital Signs Last Recorded V/S: Last Vital Signs Temp 37.0 C 02/23/20 05:41 Pulse 76 02/23/20 05:41 Resp 16 02/23/20 05:41 BP 124/68 02/23/20 05:41 Pulse Ox 100 02/23/20 05:41 - Orders/Labs/Meds Orders: Active Orders 24 hr Category Date Time Status SEDIMENTATION RATE AUTO [HEME] Stat Lab 02/23/20 06:02 Received Ketorolac [Toradol] Med 02/23/20 06:00 Active 30 mg IVPUSH ONETIME Sodium Chloride 0.9% [Normal Saline] 1,000 ml Med 02/23/20 06:00 Active IV ASDIRECTED Medication Orders Sodium Chloride (Normal Saline) 1,000 mls @ 150 mls/hr IV ASDIRECTED LUIS Last Admin: 02/23/20 06:02 Dose: 150 mls/hr Documented by: DAE Ketorolac Tromethamine (Toradol) 30 mg IVPUSH ONETIME LUIS Last Admin: 02/23/20 06:03 Dose: 30 mg Documented by: DAE Labs: Laboratory Tests 02/23/20 02/23/20 Range/Units 06:02 06:02 WBC 11.62 H (3.98-10.04) K/mm3 RBC 5.10 (3.98-5.22) M/mm3 Hgb 14.7 D (11.2-15.7) gm/dl Hct 42.9 (34.1-44.9) % MCV 84.1 (79.4-94.8) fl MCH 28.8 (25.6-32.2) pg MCHC 34.3 (32.2-35.5) g/dl RDW Std Deviation 36.7 (36.4-46.3) fL Plt Count 319 D (182-369) K/mm3 MPV 9.7 (9.4-12.3) fl Neutrophils % (Manual) 83 H (40-60) % Band Neutrophils % 1 (0-10) % Lymphocytes % (Manual) 10 L (20-40) % Atypical Lymphs % 0 % Monocytes % (Manual) 3 (2-10) % Eosinophils % (Manual) 1 (0.7-5.8) % Basophils % (Manual) 2 H (0.1-1.2) Platelet Estimate Adequate RBC Morph Comment Normal Sodium 139 (136-145) mEq/L Potassium 3.9 (3.5-5.1) mEq/L Chloride 102 (98-107) mEq/L Carbon Dioxide 28 (21-32) mEq/L Anion Gap 12.9 (5-15) BUN 12 (7-18) mg/dL Creatinine 1.2 H (0.55-1.02) mg/dL Est Cr Clr Drug Dosing 44.92 mL/min Estimated GFR (MDRD) 45 (>60) mL/min BUN/Creatinine Ratio 10.0 L (14-18) Glucose 155 H (80-115) mg/dL Calcium 9.1 (8.5-10.1) mg/dL Total Bilirubin 0.8 (0.2-1.0) mg/dL AST 19 (15-37) U/L ALT 36 (14-59) U/L Alkaline Phosphatase 119 H (46-116) U/L C-Reactive Protein 6.1 H* (<1.0) mg/dL Total Protein 7.6 (6.4-8.2) g/dl Albumin 3.9 (3.4-5.0) g/dl Globulin 3.7 gm/dL Albumin/Globulin Ratio 1.1 (1-2) Meds: Medications Generic Name Dose Route Start Last Admin Trade Name Kim PRN Reason Stop Dose Admin Sodium Chloride 1,000 mls @ 150 mls/hr 02/23/20 06:00 02/23/20 06:02 Normal Saline IV 150 mls/hr ASDIRECTED LUIS Administration Ketorolac Tromethamine 30 mg 02/23/20 06:00 02/23/20 06:03 Toradol IVPUSH 30 mg ONETIME LUIS Administration Discontinued Medications Generic Name Dose Route Start Last Admin Trade Name Freq PRN Reason Stop Dose Admin Hydromorphone HCl 1 mg 02/23/20 05:50 02/23/20 06:03 Dilaudid IVPUSH 02/23/20 05:51 1 mg ONETIME ONE Administration Methylprednisolone Sodium Succinate 125 mg 02/23/20 06:47 02/23/20 06:55 Solu-Medrol IVPUSH 02/23/20 06:48 125 mg ONETIME ONE Administration Ondansetron HCl 4 mg 02/23/20 05:50 02/23/20 06:03 Zofran IVPUSH 02/23/20 05:51 4 mg ONETIME ONE Administration - Radiology Interpretation Free Text/Narrative:: 64-year-old female presents to the ED per ambulance. She reports developing acute exacerbation of chronic low back pain after doing some heavy lifting yesterday p.m. Patient took Motrin 600 mg before bed last night with very little relief. Upon trying to get up this morning she was unable to do so on her own volition. Any movement causes acute spasm of the low back worse on the right compared to the left. At present she has radiculopathy in the left lower extremity to her ankle compatable with sciatica. She has had recent [facility] [place]. Identified to have degenerative disc disease and arthritic change in her lower back particular at the L5-S1 level. She has been attending physiotherapy with fairly good response to physical therapy over the last 6 weeks. Bowel or bladder dysfunction at this time. Patient cannot sit up or rollover at this time due to severity of the back pain. Plan IV normal saline at 150 mils per hour. Given Dilaudid 1 mg IV with Toradol 30 mg IV and Zofran 4 mg IV. Routine labs will be collected to assess renal function and potassium levels before giving any steroids etc. she is on an inhaled corticosteroid in her Dulera which may cause hypokalemia. - Re-Assessments/Exams Free Text/Narrative Re-Assessment/Exam: 02/23/20 06:45: . White blood cell count is mildly elevated at 11.62. Differential pending hemoglobin 14.7 with hematocrit of 42.9. Platelet count is 319,000. Sodium is 139 with a potassium of 3.9. Chloride is 102 with a bicarb of 28. Anion gap is 12.9. BUN is 12 with a creatinine of 1.2. GFR is 45. BUN/creatinine ratio is 10 with a glucose of 155 mildly elevated. Patient has no history of diabetes. Calcium is 9.1. Liver function normal. CRP is elevated at 6.1. Total protein is 7.6 with an albumin fraction of 3.9. On reassessment patient is feeling much better. She still feels mild spasm in her lower back but reports 60 to 70% better than she was. Will proceed with Solu- Medrol 125 mg IV. 02/23/20 07:31 nurses have got her up and she is able to ambulate. She will be discharged home to use prednisone 20 mg twice daily for the next 6 days with the [facility] dose [facility]. Percocet tabs 5/325 mg 1 or 2 every 4-6 hours necessary for pain relief. Flexeril 10 mg by mouth every 6 hours necessary for relief of severe muscle spasm. Continue Motrin 600 mg every 6 hours as necessary to relieve pain and inflammation. Departure - Departure Time of Disposition: 07:32 Disposition: Home, Self-Care 01 Preliminary Cause of *Q: Sepsis & Multi System Organ Failure Condition: Fair Clinical Impression: Acute exacerbation of chronic low back pain, Sciatica of left side associated with disorder of lumbar spine Sciatica Qualifiers: Laterality: left Qualified Code(s): M54.32 - Sciatica, left side - Discharge Information *PRESCRIPTION DRUG MONITORING PROGRAM REVIEWED*: Not Applicable *COPY OF PRESCRIPTION DRUG MONITORING REPORT IN PATIENT SANDRA: Not Applicable Prescriptions: Cyclobenzaprine [Flexeril] 10 mg PO Q12H PRN #10 tablet PRN Reason: low back pain oxyCODONE HCl/Acetaminophen [Percocet 5-325 mg Tablet] 1 - 2 each PO Q4H PRN #24 tablet PRN Reason: pain relief. predniSONE [Prednisone] 20 mg PO BID #12 tablet Instructions: Acute Back Pain, Adult, Pain Medicine Instructions, [id number] Referrals: Elio Aguilar PA-C [Primary Care Provider] - Forms: ED Department Discharge Additional Instructions: Evaluation in the emergency room this morning in regards to acute exacerbation of chronic low back pain. History of sciatica and left lower extremity off and on for the last 2 months. Currently having significant muscle spasm in the right mid and lower back. Increased pain left lower extremity as well. Recent lifting and carrying and repetitive twisting movements at home may have exacerbated low back pain. No imaging studies were done today. Treatment was intravenous pain medication Dilaudid 1 mg with Toradol 30 mg IV and Solu-Medrol 125 mg IV to relieve acute pain and muscle spasm. Treatment at home is Motrin 600 mg every 6 hours with the next dose due around noon today. May use Flexeril 10 mg by mouth every 12 hours as necessary for relief of muscle spasm. Of note this medication crying can cause sedation. Pain medication is Percocet tabs 5/325 mg 1 or 2 every 4-6 hours necessary for pain relief. Prednisone 20 mg by mouth twice daily with breakfast and supper for the next 6 days. First dose is due at suppertime tonight. Expect gradual improvement in low back pain over the next 48 to 72 hours. Activity as tolerated. Turn to medical care if not markedly improved in 3 to 5 days time. Follow-up with personal care physician in 7 to 10 days time if still having significant sciatica left lower extremity. Sepsis Event Note (ED) - Evaluation Sepsis Screening Result: No Definite Risk - Focused Exam Vital Signs: Vital Signs Temp Pulse Resp BP Pulse Ox 02/23/20 05:41 37.0 C 76 16 124/68 100 - My Orders Last 24 Hours: My Active Orders 02/23/20 06:00 Ketorolac [Toradol] 30 mg IVPUSH ONETIME Sodium Chloride 0.9% [Normal Saline] 1,000 ml IV ASDIRECTED 02/23/20 06:02 SEDIMENTATION RATE AUTO [HEME] Stat - Assessment/Plan Last 24 Hours: My Active Orders 02/23/20 06:00 Ketorolac [Toradol] 30 mg IVPUSH ONETIME Sodium Chloride 0.9% [Normal Saline] 1,000 ml IV ASDIRECTED 02/23/20 06:02 SEDIMENTATION RATE AUTO [HEME] Stat
[2020-02-23] MEDS ORDERED: Ketorolac 30 MG/ML SDV IVPUSH SCH (06:00)
[2020-02-23] MEDS ORDERED: Sodium Chloride 0.9% 1,000 ML IV SCH (06:00)
[2020-02-23] MEDS ORDERED: methylPREDNISolone Sodium Succinate 125 MG/2 ML SDV IVPUSH ONE (06:47)
[2020-02-23 07:49] VITALS: BP 111/66; PULSE 71
== END 2020-02-23 07:46 | disposition home or self-care (01) ==
LOC: JD.ED 05:39 → SUPCPDRO 05:39 → JD.ED 07:46
DX: M54.42 Lumbago with sciatica, left side (principal); J44.9 Chronic obstructive pulmonary disease, unspecified; F17.210 Nicotine dependence, cigarettes, uncomplicated; Z79.899 Other long term (current) drug therapy; Z90.49 Acquired absence of other specified parts of digestive tract
CPT/HCPCS: 36415; 80053; 85007; 85027; 85652; 86140; 96374; 96375; 99283; J1170; J1885; J2405; J2930; J7030; 99284

== ENCOUNTER 2020-02-26 04:06 | Emergency (ER) | payer BC ==
[2020-02-26 04:11] VITALS: BP 156/86; PULSE 92
[2020-02-26] MEDS ORDERED: HYDROmorphone 1 MG/ML Syringe IVPUSH ONE (04:44)
[2020-02-26] MEDS ORDERED: Orphenadrine 100 MG Tab.ER PO STA (04:59)
--- NOTE | 2020-02-26 05:06 | EDM.PDOC ---
ED HPI GENERAL MEDICAL PROBLEM - General Chief Complaint: Back Pain or Injury Stated Complaint: [facility] Time Seen by Provider: 02/26/20 04:22 Source of Information: Reports: Patient, Family (), Old Records (ED 02/23/2020) History Limitations: Reports: Uncooperative (Patient is hostile and does not want to answer questions. Insisted on receiving pain medication before talking to me.) - History of Present Illness INITIAL COMMENTS - FREE TEXT/NARRATIVE: Mrs. 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 She tells me at this time that her last appointment was on 02/20/2020. Medical records indicate that she was seen in this ED this past 02/23/2020, after developing increased lower back pain with pain radiating down her anterolateral left thigh, all the way to the ankle on or about 02/21/2020, after lifting heavy plant pots and repeatedly twisting her back. Work-up in the ED included a CBC, CMP, and CRP, all of which were unremarkable. She was treated with IV Toradol, IV Dilaudid, IV Solu-Medrol, IV Zofran, and IV fluid, t hen discharged home with prescriptions for prednisone 20 mg po BID x 6 days, Percocet 5/325 1-2 tabs po Q 4 to 6 hrs prn, Flexeril 10 mg po Q 6 hrs, and [id number] ibuprofen 600 mg po Q6 hrs. The patient now returns to the ED stating that despite being compliant with the prescribed medicines (although she states that she has been taking only 400 mg of ibuprofen every 8 hours), she has not attained any significant improvement in her symptoms. She is walking with a cane, although she states that is because it is painful for her to bear weight on her left lower extremity. She reports that she has had some urinary incontinence when she gets up, although not if she is supine, and she also reports that she has not had a bowel movement since , 02/22/2020. She took a single Dulcolax yesterday morning. Her tells me that she is out of her Percocet. Here in the ED, the patient's initial BP is found to be mildly elevated at 156/86, otherwise, she is hemodynamically stable, afebrile, saturating 96% on room air. Other than the continued lower back and left lower extremity pain, the patient denies recent fever, chills, sore throat, ear pain, nasal or sinus congestion, cough, dyspnea, chest pain, palpitations, nausea, vomiting, constipation, diarrhea, abdominal pain, urinary symptoms, recent weight gain or weight loss, recent bloody bowel movements or black bowel movements, recent joint aches, headaches, or rashes. The patient's PCP is AGATHA Santamaria. Her Orthopedic Surgeon is Dr. Pete Salas. Bilateral Lower Back Pain Score (Numeric/FACES): 9 - Related Data Allergies Allergy/AdvReac Type Severity Reaction Status Date / Time No Known Allergies Allergy Verified 02/26/20 04:08 Home Meds: Home Meds Albuterol Sulfate [Albuterol Sulfate HFA] 2 inh INH ASDIRECTED PRN 04/07/14 [History] Mometasone/Formoterol [Dulera 200 Mcg-5 Mcg Inhaler] 02/23/20 [History] predniSONE [Prednisone] 20 mg PO BID #12 tablet 02/23/20 [Rx] Orphenadrine [Norflex] 1 tab PO Q12H PRN #20 tab 02/26/20 [Rx] oxyCODONE HCl/Acetaminophen [Percocet 10-325 mg Tablet] 1 - 2 tab PO Q6H PRN #20 tablet 02/26/20 [Rx] Past Medical History HEENT History: Reports: Impaired Vision (wears glasses) Respiratory History: Reports: COPD Gastrointestinal History: Reports: GERD (untreated) - Past Surgical History HEENT Surgical History: Reports: Oral Surgery (wisdom teeth extractions) GI Surgical History: Reports: Appendectomy Female Surgical History: Reports: Section (x 1) Social & Family History - Family History Family Medical History: Noncontributory - Tobacco Use Years of Tobacco use: 42 Packs/Tins Daily: 0.8 Packs/Tins Daily Comment: Down from 1 ppd - Caffeine Use Caffeine Use: Reports: Coffee, Tea - Alcohol Use Alcohol Use History: Yes Alcohol Use Frequency: Rarely - Recreational Drug Use Recreational Drug Use: No - Living Situation & Occupation Living situation: Reports: , with Spouse, with Family (Daughter, granddaughter) 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 ED EXAM,LOWER BACK PAIN/INJURY - Physical Exam Exam: See Below Exam Limited By: Uncooperative (The patient did not want me to touch her lower extremities, although did eventually allow me to check her dorsiflexion and plantarflexion. She did not allow me to perform a straight leg raise.) General Appearance: Alert, WD/WN, Mild Distress (appears uncomfortable) Eye Exam: Bilateral Eye: EOMI, Normal Inspection Ears: Normal External Exam, Hearing Grossly Normal Nose: Normal Inspection Throat/Mouth: Normal Inspection, Normal Lips, Normal Voice, No Airway Compromise Head: Atraumatic, Normocephalic Neck: Normal Inspection, Full Range of Motion Respiratory/Chest: No Respiratory Distress, Lungs Clear, Normal Breath Sounds, No Accessory Muscle Use Cardiovascular: Normal Peripheral Pulses, Regular Rate, Rhythm, No Edema, No Gallop, No JVD, No Murmur, No Rub GI/Abdominal: Normal Bowel Sounds, Soft, Non-Tender, No Organomegaly, No Distention, No Abnormal Bruit, No Mass Back Exam: Other (The patient did not allow examination of her back) Extremities: Normal Inspection (No visible abnormalities) Neurological: Alert, Normal Dorsiflexion, Normal Plantar Flexion, No Motor/Sensory Deficits Psychiatric: Other (Hostile) Skin Exam: Warm, Dry, Intact, Normal Color, No Rash Course - Vital Signs Last Recorded V/S: Last Vital Signs Temp 37.3 C 02/26/20 04:08 Pulse 92 02/26/20 04:08 Resp 15 02/26/20 04:08 BP 156/86 H 02/26/20 04:08 Pulse Ox 96 02/26/20 04:08 - Orders/Labs/Meds Meds: Medications Discontinued Medications Generic Name Dose Route Start Last Admin Trade Name Freq PRN Reason Stop Dose Admin Hydromorphone HCl 1 mg 02/26/20 04:44 02/26/20 05:05 Dilaudid IVPUSH 02/26/20 04:45 1 mg ONETIME ONE Administration Orphenadrine Citrate 100 mg 02/26/20 04:59 02/26/20 05:08 Norflex PO 02/26/20 05:00 100 mg ONETIME STA Administration - Re-Assessments/Exams Free Text/Narrative Re-Assessment/Exam: 02/26/20 05:00 As above, the patient developed lower back pain with radiation down her left lower extremity on or about 02/21/2020, was seen in this ED on 02/23/2020 and treated with tramadol, Dilaudid, and Solu-Medrol before being discharged home with prescriptions for prednisone, Percocet, Flexeril, and [id number] ibuprofen, yet, despite these treatments, the patient has now returned to the ED stating that she has not received any significant improvement in her symptoms. She reports urinary incontinence when she gets up, although no fecal incontinence, and on the somewhat limited examination that the patient allowed me to perform, I do not find that she has lower extremity weakness. While she complains of pain to her entire left lower extremity, she does not report tin gling or numbness. I do not suspect a cord compression. The patient has been given IV Dilaudid and oral Norflex. I explained to the patient that Dr. Munoz already ordered maximum medical treatment of her symptoms, and if that is ineffective, then surgery needs to be considered. I am therefore recommending the followin. I will refill the patient's Percocet. 2. I will switch the patient from Flexeril to Norflex. 3. I will refer the patient to a Neurosurgeon in [place]. They will likely order an outpatient MRI, and from there, they can discuss whether or not surgery is a reasonable option for her. While the patient has a relationship at [facility] in [place], they do not have Spinal Surgeons, therefore I will refer her to Dr. Tenorio at [facility]. 02/26/20 05:19 The above plan was discussed with the patient and her . The patient stated that she did not want to follow-up with Dr. Tenorio, that she intended to follow-up at [facility]. I informed her that [facility] does not have a Neurosurgeon/Spinal Surgeon, which is why I was referring her to Dr. Tenorio. She stated that she trusts the doctors at [facility], and would prefer to have a referral to a Neurosurgeon by them. I pointed out that Dr. Tenorio has an excellent reputation, but that there are other Neurosurgeons, and she may follow-up with whomever she chooses. Departure - Departure Time of Disposition: 05:06 Disposition: Home, Self-Care 01 Condition: Good Clinical Impression: Lumbar radiculopathy - Discharge Information *PRESCRIPTION DRUG MONITORING PROGRAM REVIEWED*: Not Applicable *COPY OF PRESCRIPTION DRUG MONITORING REPORT IN PATIENT SANDRA: Not Applicable Prescriptions: Orphenadrine [Norflex] 1 tab PO Q12H PRN #20 tab PRN Reason: Muscle Spasm oxyCODONE HCl/Acetaminophen [Percocet 10-325 mg Tablet] 1 - 2 tab PO Q6H PRN #20 tablet PRN Reason: Pain (Severe 7-10) Instructions: Sciatica, [id number] Referrals: Cristobal Tenorio MD [Ordering Only Provider] - Elio Aguilar PA-C [Physician Geophysical Data Technician] - Pete Salas MD [Ordering Only Provider] - Forms: ED Department Discharge Additional Instructions: You were seen in the emergency room for continued lower back pain with radiation down your left lower extremity. Based on your history and physical examination, you are suffering from lumbar radiculopathy. We recommend that you continue to take prednisone, 1 tablet every 12 hours, as previously prescribed. We recommend that you continue to take [id number] ibuprofen, 2 to 3 tablets (400-600 mg) every 8 hours, with food, [id number]. You may take 1 to 2 tablets of the prescription opioid Percocet up to every 6 hours, as needed for pain not relieved by ibuprofen. If you take Percocet, do not drive or operate heavy machinery for 12 hours afterwards. Percocet may cause constipation, so consider taking a stool softener. You have been prescribed a different muscle relaxant called Norflex. Take 1 tablet of Norflex every 12 hours, on a regular basis. If you take Norflex, do not also take Flexeril (cyclobenzaprine). Because your symptoms have not significantly improved despite maximum medical treatment that includes steroids, opioid analgesics, and muscle relaxants, surge ry needs to be considered. We recommend that you follow-up with the Neurosurgeon Dr. Cristobal Tenorio at the next available appointment. Make sure that the human resources receptionist understands that you are following up from the ER, and that we recommend that you be seen as soon as possible. If any other problems, please do not hesitate to return to the ER. Sepsis Event Note (ED) - Evaluation Sepsis Screening Result: No Definite Risk - Focused Exam Vital Signs: Vital Signs Temp Pulse Resp BP Pulse Ox 02/26/20 04:08 37.3 C 92 15 156/86 H 96
== END 2020-02-26 06:00 | disposition home or self-care (01) ==
LOC: JD.ED 04:06
DX: M54.16 Radiculopathy, lumbar region (principal); J44.9 Chronic obstructive pulmonary disease, unspecified; Z90.49 Acquired absence of other specified parts of digestive tract; Z98.890 Other specified postprocedural states
CPT/HCPCS: 96374; 99284; A9270; J1170; 99283

== ENCOUNTER 2022-12-13 10:42 | Emergency (ER) | payer BC ==
[2022-12-13] MEDS ORDERED: methylPREDNISolone Sodium Succinate 125 MG/2 ML SDV IVPUSH ONE (10:43)
[2022-12-13] MEDS ORDERED: Sodium Chloride 0.9% 10 ML Syringe FLUSH PRN (10:43)
[2022-12-13] MEDS ORDERED: Magnesium Sulfate/Water 2 GM in Premix Bag 1 BAG IV ONE (10:44)
[2022-12-13 11:43] LABS: BASOPHILS ABSOLUTE AUTO 0.01 K/mm3 (0.01-0.08); BASOPHILS PERCENT AUTO 0.1 % (0.1-1.2); EOSINOPHILS ABSOLUTE AUTO 0.25 K/mm3 (0.04-0.36); EOSINOPHILS PERCENT AUTO 2.8 (0.7-5.8); HEMATOCRIT 45.2 % (34.1-44.9); HEMOGLOBIN 15.6 gm/dl (11.2-15.7); IMMATURE GRAN ABSOLUTE AUTO 0.02 K/mm3 (0.00-0.10); IMMATURE GRAN PERCENT AUTO 0.2 % (<=1.0); LYMPHOCYTES ABSOLUTE AUTO 1.06 K/mm3 (1.18-3.74); MEAN CORPUSCULAR HEMOGLOBIN 29.4 pg (25.6-32.2); MEAN CORPUSCULAR HGB CONC 34.5 g/dl (32.2-35.5); MEAN CORPUSCULAR VOLUME 85.1 fl (79.4-94.8); MEAN PLATELET VOLUME 9.9 fl (9.4-12.3); MONOCYTES ABSOLUTE AUTO 0.58 K/mm3 (0.24-0.36); MONOCYTES PERCENT AUTO 6.5 % (4.7-12.5); NEUTROPHILS ABSOLUTE AUTO 6.94 K/mm3 (1.56-6.13); NEUTROPHILS PERCENT AUTO 78.4 % (34.0-71.1); PLATELET COUNT,PLT 273 K/mm3 (182-369); RED BLOOD CELL COUNT 5.31 M/mm3 (3.98-5.22); WHITE BLOOD CELL COUNT,WBC 8.86 K/mm3 (3.98-10.04)
[2022-12-13 12:03] LABS: A/G RATIO 1.2 (1-2); ALBUMIN 4.4 g/dl (3.4-5.0); ANION GAP 14.1 (5-15); BILIRUBIN TOTAL 0.3 mg/dL (0.2-1.0); BUN/CREATININE RATIO 14.5 (14-18); CALCIUM 9.3 mg/dL (8.5-10.1); CREATININE 1.1 mg/dL (0.55-1.02); EST CRCL DRUG DOSING (CG) 47.1 mL/min; POTASSIUM,K 4.1 mEq/L (3.5-5.1)
[2022-12-13 13:10] VITALS: BP 132/72; PULSE 81
== END 2022-12-13 13:10 | disposition home or self-care (01) ==
LOC: JD.ED 10:42
DX: J45.901 Unspecified asthma with (acute) exacerbation (principal); K21.9 Gastro-esophageal reflux disease without esophagitis; F17.210 Nicotine dependence, cigarettes, uncomplicated; Z88.2 Allergy status to sulfonamides; Z79.899 Other long term (current) drug therapy
CPT/HCPCS: 36415; 71045; 80053; 85025; 96365; 96366; 96375; 99285; J2930; J3475; J3490; 99284

== ENCOUNTER 2022-12-13 17:05 | Emergency (ER) | payer BC ==
[2022-12-13] MEDS ORDERED: Albuterol 0.083% 2.5 MG/3 ML Neb Soln ONE (17:10)
[2022-12-13] MEDS ORDERED: Albuterol/Ipratropium 3.0-0.5 MG/3 ML Neb Soln ONE (17:10)
[2022-12-13] MEDS ORDERED: Sodium Chloride 0.9% 10 ML Syringe FLUSH PRN (17:10)
[2022-12-13] MEDS ORDERED: Albuterol 0.021% 0.63 MG/3 ML Neb Soln NEB ONE (17:11)
[2022-12-13] MEDS ORDERED: Albuterol/Ipratropium 3.0-0.5 MG/3 ML Neb Soln NEB ONE (17:11)
[2022-12-13] MEDS ORDERED: Ondansetron 4 MG/2 ML SDV IVPUSH ONE (17:14)
[2022-12-13] MEDS ORDERED: Ondansetron 4 MG/2 ML SDV ONE (17:15)
[2022-12-13 17:22] VITALS: PULSE 141
[2022-12-13 17:42] LABS: BASE EXCESS ARTERIAL -1.6 (-2-2.0); BICARBONATE,ARTERIAL 23.7 meq/L (22.0-26.0); PCO2 ARTERIAL 44.7 mmHg (35.0-45.0)
[2022-12-13 17:43] LABS: BASOPHILS ABSOLUTE AUTO 0.01 K/mm3 (0.01-0.08); BASOPHILS PERCENT AUTO 0.1 % (0.1-1.2); EOSINOPHILS ABSOLUTE AUTO 0.01 K/mm3 (0.04-0.36); EOSINOPHILS PERCENT AUTO 0.1 (0.7-5.8); HEMATOCRIT 43.5 % (34.1-44.9); HEMOGLOBIN 15.1 gm/dl (11.2-15.7); IMMATURE GRAN ABSOLUTE AUTO 0.01 K/mm3 (0.00-0.10); IMMATURE GRAN PERCENT AUTO 0.1 % (<=1.0); LYMPHOCYTES ABSOLUTE AUTO 0.73 K/mm3 (1.18-3.74); LYMPHOCYTES PERCENT AUTO 9.1 % (19.3-51.7); MEAN CORPUSCULAR HEMOGLOBIN 29.7 pg (25.6-32.2); MEAN CORPUSCULAR HGB CONC 34.7 g/dl (32.2-35.5); MEAN CORPUSCULAR VOLUME 85.6 fl (79.4-94.8); MEAN PLATELET VOLUME 9.7 fl (9.4-12.3); MONOCYTES ABSOLUTE AUTO 0.13 K/mm3 (0.24-0.36); MONOCYTES PERCENT AUTO 1.6 % (4.7-12.5); NEUTROPHILS ABSOLUTE AUTO 7.09 K/mm3 (1.56-6.13); PLATELET COUNT,PLT 315 K/mm3 (182-369); RED BLOOD CELL COUNT 5.08 M/mm3 (3.98-5.22); WHITE BLOOD CELL COUNT,WBC 7.98 K/mm3 (3.98-10.04)
[2022-12-13 18:03] LABS: A/G RATIO 1.1 (1-2); ALBUMIN 4.3 g/dl (3.4-5.0); ANION GAP 15.1 (5-15); BILIRUBIN TOTAL 0.3 mg/dL (0.2-1.0); BUN/CREATININE RATIO 13.6 (14-18); CALCIUM 9.2 mg/dL (8.5-10.1); CREATININE 1.4 mg/dL (0.55-1.02); EST CRCL DRUG DOSING (CG) 39.87 mL/min; POTASSIUM,K 4.1 mEq/L (3.5-5.1); PROTEIN TOTAL,TP 8.2 g/dl (6.4-8.2)
[2022-12-14] MEDS ORDERED: Albuterol/Ipratropium 3.0-0.5 MG/3 ML Neb Soln NEB ONE (04:05)
[2022-12-14 06:34] VITALS: BP 115/62
== END 2022-12-14 11:00 | disposition home or self-care (01) ==
LOC: JD.ED 17:05
DX: J44.1 Chronic obstructive pulmonary disease with (acute) exacerbation (principal); K21.9 Gastro-esophageal reflux disease without esophagitis; Z88.2 Allergy status to sulfonamides; Z79.01 Long term (current) use of anticoagulants; Z79.899 Other long term (current) drug therapy
CPT/HCPCS: 36415; 36600; 71045; 80053; 82803; 85025; 94640; 94660; 99285; J2405; J3490; 99284; J7620-GY